=== PATIENT | female | born 1995 | race Caucasian/White ===

== ENCOUNTER 2019-02-10 14:37 | Emergency (ER) | payer OTHER ==
[~2019-02-10] VITALS: Ht 165.1 cm; Wt 75.1 kg
[2019-02-10] MEDS ORDERED: normal saline 1000ML IV soln IVB ONE (15:30)
[2019-02-10] MEDS ORDERED: dexamethasone sod phosphate 10mg/ml inj IV STA (15:30)
[2019-02-10] MEDS ORDERED: ketorolac tromethamine 15mg/ml inj. IV ONE (15:30)
[2019-02-10 16:26] VITALS: BP 120/73
== END 2019-02-10 17:05 | disposition home or self-care (01) ==
LOC: ER 14:38
DX: R51 Headache (principal); M79.2 Neuralgia and neuritis, unspecified; F17.200 Nicotine dependence, unspecified, uncomplicated
CPT/HCPCS: 96374; 96375; 99283; J1100; J1885; J7030

== ENCOUNTER 2019-02-12 12:39 | Emergency (ER) | payer OTHER ==
[~2019-02-12] VITALS: Ht 172.7 cm; Wt 75.0 kg
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
[2019-02-12] MEDS ORDERED: ondansetron/PF 4mg/2ml inj IV ONE (13:15)
[2019-02-12] MEDS ORDERED: normal saline 1000ml 1,000 ML IV ONE (13:15)
[2019-02-12] MEDS ORDERED: ketorolac trometh. 30mg/ml inj. IV ONE (13:15)
[2019-02-12] MEDS ORDERED: acetaminophen 325mg tablet PO ONE (13:15)
[2019-02-12 13:53] LABS: ALANINE AMINOTRANSFERASE 18 U/L (12-78); ALBUMIN 3.8 G/DL (3.4-5.0); ALBUMIN/GLOBULIN RATIO 1.2 (1.1-1.5); ALKALINE PHOSPHATASE 46 IU/L (46-116); ANION GAP 8 (8-16); ASPARTATE AMINO TRANSFERASE 11 U/L (10-37); BILIRUBIN,TOTAL 0.4 MG/DL (0.1-1.0); BLOOD UREA NITROGEN 7 MG/DL (7-18); BUN/CREATININE RATIO 8.5 (6.6-38.0); CALCIUM 8.8 MG/DL (8.5-10.1); CHLORIDE 109 MMOL/L (99-107); CREATININE 0.82 MG/DL (0.40-0.90); GLUCOSE 88 MG/DL (70-104); MAGNESIUM 1.8 MG/DL (1.5-2.4); POTASSIUM 3.5 MMOL/L (3.5-5.1); SODIUM 143 MMOL/L (135-145); TOTAL CARBON DIOXIDE 26.5 MMOL/L (24-32); TOTAL PROTEIN 6.9 G/DL (6.4-8.2); eGFR 86 ML/MIN
[2019-02-12 13:55] LABS: BASOPHILS % (AUTO) 0.4 % (0-1); EOSINOPHILS # (AUTO) 0.1 X10'3 (0-0.9); EOSINOPHILS % (AUTO) 1.2 % (0-6); HEMATOCRIT 42.9 % (35.0-45.0); LYMPHOCYTES # (AUTO) 2.5 X10'3 (1.1-4.8); LYMPHOCYTES % (AUTO) 43.4 % (21-51); MEAN CORPUSCULAR HEMOGLOBIN 31.9 PG (27.0-31.0); MEAN CORPUSCULAR HGB CONC 34.9 g/dL (33.0-36.5); MEAN CORPUSCULAR VOLUME 91.5 FL (78-98); MEAN PLATELET VOLUME 9.3 FL (7.4-10.4); MONOCYTES # (AUTO) 0.5 X10'3 (0-0.9); NEUTROPHILS # (AUTO) 2.7 X10'3 (1.8-7.7); PLATELET COUNT 178 X10'3 (140-440); RED BLOOD COUNT 4.69 X10'6 (4.20-5.60); RED CELL DISTRIBUTION WIDTH 13.4 % (11.5-14.5); WHITE BLOOD COUNT 5.8 X10'3 (4.5-11.0)
[2019-02-12 13:58] VITALS: BP 113/64
[2019-02-12 14:08] LABS: URINE HCG NEGATIVE (NEG)
[2019-02-12 14:13] LABS: CLARITY,URINE CLOUDY (Clear); GLUCOSE, URINE NEGATIVE (Neg); KETONES,URINE NEGATIVE (Neg); LEUKOCYTE ESTERASE ,URINE TRACE (Neg); NITRITES, URINE NEGATIVE (Neg); OCCULT BLOOD,URINE LARGE (Neg); PH,URINE 5.5 (4.8-8.0); PROTEIN,URINE TRACE mg/dl (Neg); UROBILINOGEN,URINE 0.2 E.U/dL (0.2-1.0)
[2019-02-12 14:17] LABS: UA COLLECTION TYPE CLN CATCH MIDSTREAM
[2019-02-12 14:18] LABS: COLOR,URINE PINK (Yellow)
[2019-02-12 14:19] LABS: BACTERIA,URINE 1+ /HPF (Neg); RBC,URINE TNTC /HPF (0-2); SQUAMOUS EPITHELIAL CELL,UR MANY /LPF (FEW); WBC,URINE 0-4 /HPF (0-4)
[2019-02-12] MEDS ORDERED: DIPH25CA6 PO (14:36)
== END 2019-02-12 14:55 | disposition home or self-care (01) ==
LOC: ER 12:39 → MERGE 12:39 → ER 14:55
DX: R51 Headache (principal); R53.1 Weakness
CPT/HCPCS: 36415; 80053; 81001; 81025; 83735; 85025; 93005; 96374; 96375; 99284; J1885; J2405; J7030